=== PATIENT | female | born 1965 | race Two or more races ===

== ENCOUNTER → 2016-05-07 | Outpatient (CLI) | payer BC ==
[~2016-05-07] MED LIST: CETI1TAB36 PO; LISI-646 PO; PROG200C6 PO; THYR30TA PO
[2016-05-07 16:53] LABS: Basophils # (auto) 0.1 uL; Basophils % (auto) 0.5 % (0.0-2.0); Eosinophils # (auto) 0.2 uL; Eosinophils % (auto) 1.6 % (0.0-7.0); Hematocrit 42.7 % (36.0-46.0); Hemoglobin 14.4 g/dL (12.2-16.2); Lymphocytes # (auto) 2.2 uL; Lymphocytes % (auto) 18.5 % (10.0-50.0); Mean Corpuscular Hemoglobin 31.1 pg (28.0-32.0); Mean Corpuscular Hgb Conc. 33.7 g/dL (32.0-36.0); Mean Corpuscular Volume 92.3 fL (80.0-100.0); Mean Platelet Volume 9.3 fL (7.4-10.4); Monocytes # (auto) 0.7 uL; Monocytes % (auto) 5.6 % (0.0-12.0); Neutrophils # (auto) 8.9 uL; Neutrophils % (auto) 73.8 % (37.0-80.0); Platelet Count (auto) 440 10^3/uL (140-450); Red Cell Distribution Width 13.3 % (11.6-16.0)
[2016-05-07 17:02] LABS: Urine Bilirubin Negative (Negative); Urine Blood Negative /uL (Negative); Urine Color Yellow (Yellow); Urine Glucose Normal (Normal); Urine Ketone Negative (Negative); Urine Nitrite Negative (Negative); Urine RBC <1 /hpf (0 - 4); Urine Squamous Epithelial Cell FEW /hpf (<5); Urine Urobilinogen Normal (Negative)
[2016-05-07 17:04] LABS: Partial Thromboplastin Time 30.3 sec (22.64-33.71); Prothrombin Time 10.3 sec (9.37-12.3)
[2016-05-07 17:11] LABS: Albumin 3.8 g/dL (3.4-5.0); Calcium 9.2 mg/dL (8.5-10.1); Potassium 3.5 mmol/L (3.5-5.1)
[2016-05-07 17:13] LABS: BUN/Creatinine Ratio 18.8
[2016-05-07 17:16] LABS: Bilirubin, Total 0.2 mg/dL (0.2-1.0); Total Protein 7.9 g/dL (6.4-8.2)
== END | disposition home or self-care (01) ==
LOC: LAB 13:38
PROVIDERS: ATTEND Obstetrics & Gynecology
DX: D53.8 Other specified nutritional anemias (principal); M79.89 Other specified soft tissue disorders; N39.0 Urinary tract infection, site not specified
CPT/HCPCS: 36415; 80053; 81001; 85025; 85610; 85730; 87086

== ENCOUNTER 2016-05-09 06:15 | Day surgery (SDC) | payer BC ==
[~2016-05-09] VITALS: Ht 154.9 cm; Wt 56.7 kg
[2016-05-09] MEDS ORDERED: ceFAZolin 1GM/50ML D5W 50 ML IV ONE (07:15)
[2016-05-09] MEDS ORDERED: LIDOCAINE W/ EPINEPHRINE 1% 20ML VIAL ONE (08:10)
[2016-05-09] MEDS ORDERED: VASOPRESSIN 20 UNIT/ML ONE (08:10)
[2016-05-09] MEDS ORDERED: BUPIVACAINE 0.25% INJ 50ML VIAL ONE (08:10)
[2016-05-09] MEDS ORDERED: CONJ ESTROGENS 0.625MG/GM VAG CRM 30GM PV ONE (08:10)
[2016-05-09] MEDS ORDERED: ceFAZolin 1GM VL ONE (08:10)
[2016-05-09] MEDS ORDERED: MIDAZOLAM HCL 1MG/1ML-2 ML VIAL ONE (08:34)
[2016-05-09] MEDS ORDERED: fentaNYL CITRATE 100 MCG/2 ML VL ONE (08:34)
[2016-05-09] MEDS ORDERED: DEXAMETHASONE SOD PHOS 10MG/1ML VIAL INJ ONE (08:35)
[2016-05-09] MEDS ORDERED: MEPERIDINE HCL (50 MG/ML) 1 ML VIAL ONE (08:35)
[2016-05-09] MEDS ORDERED: PROPOFOL 10 MG/ML 20 ML IV ONE (08:35)
[2016-05-09] MEDS ORDERED: KETOROLAC TROMETH 30 MG/ML 1ML VIAL ONE (09:11)
[2016-05-09] MEDS ORDERED: ONDANSETRON HCL 4 MG/2 ML VIAL ONE (09:11)
[2016-05-09] MEDS ORDERED: ONDANSETRON HCL 4 MG/2 ML VIAL IV ONE (09:15)
[2016-05-09] MEDS ORDERED: KETOROLAC TROMETH 30 MG/ML 1ML VIAL IV ONE (09:15)
[2016-05-09] MEDS ORDERED: MORPHINE SULF INJ 2 MG/ML SYRINGE 1ML IV PRN (09:15)
[2016-05-09] MEDS ORDERED: hydrALAZINE HCL 20 MG/ML VL IV PRN (09:15)
[2016-05-09] MEDS ORDERED: LABETALOL HCL 5 MG/ML 4ML SYRINGE IV PRN (09:15)
[2016-05-09] MEDS ORDERED: MIDAZOLAM HCL 1MG/1ML-2 ML VIAL IV PRN (09:15)
[2016-05-09] MEDS ORDERED: HYDROmorphone HCL 2 MG/ML VL IV PRN (09:15)
[2016-05-09] MEDS ORDERED: ePHEDrine SULFATE 50 MG/ML AMP IV PRN (09:15)
[2016-05-09 11:16] VITALS: BP 106/59
== END 2016-05-09 11:26 | disposition home or self-care (01) ==
LOC: SUR 06:15
PROVIDERS: ATTEND Obstetrics & Gynecology
DX: N81.6 Rectocele (principal); N81.10 Cystocele, unspecified; N95.2 Postmenopausal atrophic vaginitis; Z90.710 Acquired absence of both cervix and uterus; Z98.51 Tubal ligation status; I10 Essential (primary) hypertension
CPT/HCPCS: 57250; 57282; 88302; J0690; J1100; J1885; J2175; J2250; J2405; J2704; J3010; J3490; J7040

== ENCOUNTER 2016-05-18 01:33 | Emergency (ER) | payer BC ==
[~2016-05-18] VITALS: Ht 154.9 cm; Wt 63.5 kg
[2016-05-18 02:20] LABS: Basophils # (auto) 0.1 uL; Basophils % (auto) 0.7 % (0.0-2.0); Eosinophils # (auto) 0.3 uL; Hematocrit 43.3 % (36.0-46.0); Hemoglobin 14.6 g/dL (12.2-16.2); Lymphocytes # (auto) 2.3 uL; Mean Corpuscular Hemoglobin 30.4 pg (28.0-32.0); Mean Corpuscular Hgb Conc. 33.6 g/dL (32.0-36.0); Mean Corpuscular Volume 90.4 fL (80.0-100.0); Mean Platelet Volume 8.5 fL (7.4-10.4); Monocytes # (auto) 0.8 uL; Monocytes % (auto) 9.6 % (0.0-12.0); Neutrophils # (auto) 5.3 uL; Neutrophils % (auto) 60.7 % (37.0-80.0); Platelet Count (auto) 468 10^3/uL (140-450); Red Cell Distribution Width 13.1 % (11.6-16.0); White Blood Cell 8.8 10^3/uL (4.4-10.8)
[2016-05-18 02:35] LABS: INR 1.11 (0.9-1.15); Partial Thromboplastin Time 28.2 sec (22.64-33.71); Prothrombin Time 11.4 sec (9.37-12.3)
[2016-05-18 02:48] LABS: Albumin 3.9 g/dL (3.4-5.0); BUN/Creatinine Ratio 17.2; Bilirubin, Total 0.5 mg/dL (0.2-1.0); Potassium 3.5 mmol/L (3.5-5.1); Total Protein 7.7 g/dL (6.4-8.2)
[2016-05-18 06:33] VITALS: BP 152/83
== END 2016-05-18 07:24 | disposition home or self-care (01) ==
LOC: ER 01:36
DX: N81.6 Rectocele (principal); R10.30 Lower abdominal pain, unspecified; I10 Essential (primary) hypertension; E07.9 Disorder of thyroid, unspecified; Z87.19 Personal history of other diseases of the digestive system; Z90.710 Acquired absence of both cervix and uterus; Z79.899 Other long term (current) drug therapy; Z98.51 Tubal ligation status
CPT/HCPCS: 36415; 74176; 80053; 85025; 85610; 85730